=== PATIENT | female | born 1995 | race African-American/Black ===

== ENCOUNTER 2021-02-20 20:24 | Inpatient (IN) ==
[2021-02-20] MEDS ORDERED: TERBUTALINE 1 MG/1 ML VIAL ONE (21:15)
[2021-02-20] MEDS ORDERED: FAMOTIDINE 20 MG/2 ML VIAL IV ONE (21:18)
[2021-02-20] MEDS ORDERED: ceFAZolin 2,000 MG/50 ML DUPLEX IV ONE (21:18)
[2021-02-20] MEDS ORDERED: CITRIC ACID/SODIUM CITRATE 30 ML UDCUP PO ONE (21:18)
[2021-02-20] MEDS ORDERED: LACTATED RINGERS 1,000 ML IV ONE (21:19)
[2021-02-20] MEDS ORDERED: LACTATED RINGERS 1,000 ML IV SCH ×2 (21:30→23:30)
[2021-02-20 21:53] LABS: Basophils % 0.2 % (0.0-0.8); Eosinophils # 0.1 10*3/uL (0.0-0.87); Eosinophils % 0.5 % (0.00-10.9); Hematocrit 33.4 VOL% (35.7-47.0); Hemoglobin 10.4 GM/DL (12.0-16.0); Immature Granulocytes % 0.4 %; Immature Granulocytes Absolute 0.04 #; Lymphocytes # 1.7 10*3/uL (1.4-4.0); Lymphocytes % 16.2 % (21.3-54.2); Mean Corpuscular HGB Conc 31.1 GM/DL (32-36); Mean Corpuscular Volume 85.2 FL (87-102); Mean Platelet Volume 9.7 FL (9.6-12.0); Monocytes % 7.7 % (1.7-12.7); Platelet Count 404 T/CUMM (130-400); Red Blood Count 3.92 MC/CUMM (3.8-5.5); Red Cell Distribution Width 14.4 % (9.3-17.3); White Blood Count 10.6 T/CUMM (4-12)
[2021-02-20 22:09] LABS: Alanine Aminotransferase 22 U/L (13-56); Albumin 2.8 G/DL (3.4-5.0); Alkaline Phosphatase 222 U/L (45-117); Aspartate Amino Transferase 33 U/L (0-37); Bilirubin,Total < 0.39 MG/DL (0.20-1.00); Blood Urea Nitrogen 9 MG/DL (7-18); Calcium 8.6 MG/DL (8.5-10.1); Carbon Dioxide 22 MMOL/L (21-32); Estimated Glom Filtration Rate 179 ML/MIN; Glucose 77 MG/DL (74-106); Osmolality,Calculated 270.8 MOS/KG (273-304); Potassium 3.7 MMOL/L (3.5-5.1); Sodium 137 MMOL/L (136-145); Total Protein 7.3 G/DL (6.4-8.2)
[2021-02-20] MEDS ORDERED: BUTORPHANOL 2 MG/ML VIAL IV PRN (23:15)
[2021-02-20] MEDS ORDERED: ONDANSETRON 4 MG/2 ML VIAL IV PRN (23:15)
[2021-02-21 00:08] LABS: Bacteria,Urine Occasional /HPF (Few); Bilirubin,Urine Negative (Negative); Blood, Urine Negative (Negative); Glucose,Urine (UA) Negative (Negative); Ketones,Urine 20 mg/dL (Negative); Nitrite,Urine Negative (Negative); Protein,Urine Negative; RBC,Urine 1 /HPF (0-4); Squamous Epithelial Cell,Urine Occasional /HPF (0-10); Urine Appearance CLEAR (Clear); Urine Color Yellow (Yellow); Urine Specific Gravity 1.013 (1.001-1.035); Urine Urobilinogen < 2.0 EU/DL (0.2-1.0)
[2021-02-21] MEDS: MEPERIDINE 50 MG/1 ML VIAL IV PRN ×2 (00:53→03:24)
[2021-02-21] MEDS ORDERED: AMPICILLIN INJ 2,000 MG in SODIUM CHLORIDE 0.9% 100 ML IV ONE (04:00)
[2021-02-21] MEDS ORDERED: OXYTOCIN/LR 20 UNIT/1,000 ML BAG IV SCH (06:00)
[2021-02-21] MEDS ORDERED: LACTATED RINGERS 1,000 ML IV ONE (07:45)
[2021-02-21] MEDS ORDERED: CITRIC ACID/SODIUM CITRATE 30 ML UDCUP PO ONE (07:45)
[2021-02-21] MEDS ORDERED: FAMOTIDINE 20 MG/2 ML VIAL IV ONE (07:45)
[2021-02-21] MEDS ORDERED: ePHEDrine 50 MG/ML VIAL IV PRN (07:46)
[2021-02-21] MEDS ORDERED: NALOXONE 0.4 MG/ML VIAL IV PRN (07:46)
[2021-02-21] MEDS ORDERED: diphenhydrAMINE 50 MG/1 ML VIAL IV PRN ×2 (07:46)
[2021-02-21] MEDS ORDERED: hydrOXYzine HCL 25 MG/1 ML VIAL IM PRN (07:46)
[2021-02-21] MEDS ORDERED: PROMETHAZINE 25 MG/1 ML VIAL IM ONE (07:46)
[2021-02-21] MEDS ORDERED: fentaNYL 2 MCG/ROPIV 0.2% EPID 100 ML EPIDURAL SCH (08:00)
[2021-02-21] MEDS ORDERED: AMPICILLIN INJ 1,000 MG in SODIUM CHLORIDE 0.9% 100 ML IV SCH (08:00)
[2021-02-21 12:38] LABS: Cord Venous Blood HCO3 21.4 MMOL/L; Cord Venous Blood PCO2 42.9 MMHG; Cord Venous Blood PO2 32.4
[2021-02-21] MEDS ORDERED: HYDROCORTISONE 2.5% RECTAL CREAM 30 GM TUBE TOP PRN (14:27)
[2021-02-21] MEDS ORDERED: oxyCODONE/ACETAMINOPHEN 5-325 MG TABLET PO PRN (14:27)
[2021-02-21] MEDS ORDERED: WITCH HAZEL PADS 100/JAR TOP PRN (14:27)
[2021-02-21] MEDS ORDERED: OXYTOCIN/LR 20 UNIT/1,000 ML BAG IV ONE (14:27)
[2021-02-21] MEDS ORDERED: RHO(D) IMMUNE GLOBULIN 300 MCG SYRINGE IM ONE (14:27)
[2021-02-21] MEDS ORDERED: MEASLES/MUMPS/RUBELLA VACCINE 0.5 ML VIAL SUBCUT ONE (14:27)
[2021-02-21] MEDS ORDERED: DIPH/TET/ACEL PERT BOOSTER VACCINE 0.5 ML VIAL IM ONE (14:27)
[2021-02-21] MEDS ORDERED: LANOLIN 50% CREAM 0.3 OZ TUBE TOP PRN (14:27)
[2021-02-21] MEDS ORDERED: BENZOCAINE 20%/MENTHOL 0.5% SPRAY 56 GM CAN TOP PRN (14:27)
[2021-02-21] MEDS ORDERED: ACETAMINOPHEN 325 MG TABLET PO PRN (14:27)
[2021-02-21] MEDS ORDERED: BISACODYL 10 MG SUPP RECTAL PRN (14:27)
[2021-02-21] MEDS ORDERED: ONDANSETRON 4 MG/2 ML VIAL IV PRN (14:27)
[2021-02-21] MEDS: oxyCODONE/ACETAMINOPHEN 5-325 MG TABLET PO PRN (15:19)
[2021-02-21] MEDS: DOCUSATE SODIUM 100 MG CAPSULE PO SCH (21:21)
[2021-02-22 06:03] LABS: Basophils % 0.3 % (0.0-0.8); Eosinophils # 0.1 10*3/uL (0.0-0.87); Hematocrit 26.9 VOL% (35.7-47.0); Hemoglobin 8.6 GM/DL (12.0-16.0); Immature Granulocytes % 0.6 %; Immature Granulocytes Absolute 0.07 #; Lymphocytes # 2.5 10*3/uL (1.4-4.0); Lymphocytes % 21.6 % (21.3-54.2); Mean Corpuscular Volume 85.4 FL (87-102); Mean Platelet Volume 9.4 FL (9.6-12.0); Monocytes % 8.1 % (1.7-12.7); Neutrophils % 68.4 % (38.7-73.9); Platelet Count 316 T/CUMM (130-400); Red Blood Count 3.15 MC/CUMM (3.8-5.5); Red Cell Distribution Width 14.4 % (9.3-17.3); White Blood Count 11.7 T/CUMM (4-12)
[2021-02-22] MEDS: oxyCODONE/ACETAMINOPHEN 5-325 MG TABLET PO PRN ×2 (06:07→17:09)
[2021-02-22] MEDS: IBUPROFEN 800 MG TABLET PO PRN ×2 (06:08→17:10)
[2021-02-22] MEDS: DOCUSATE SODIUM 100 MG CAPSULE PO SCH ×2 (08:50→21:25)
[2021-02-22] MEDS: FERROUS SULFATE 325 MG TABLET PO SCH (08:50)
[2021-02-22] MEDS ORDERED: MAGNESIUM HYDROXIDE SUSP 30 ML UDCUP PO PRN (14:05)
[2021-02-23 08:27] VITALS: BP 122/67
[2021-02-23] MEDS: DOCUSATE SODIUM 100 MG CAPSULE PO SCH (09:43)
[2021-02-23] MEDS: FERROUS SULFATE 325 MG TABLET PO SCH (09:43)
== END 2021-02-23 11:10 | disposition home or self-care (01) | DRG 560 ==
LOC: N.LDOUT 20:24 → N.LD 21:36 → N.OB 02-21 16:02
PROVIDERS: ADMIT Specialist; ATTEND Specialist